=== PATIENT | female | born 2000 | race Caucasian/White ===

== ENCOUNTER 2021-07-06 18:53 | Emergency (ER) | payer MEDICAID ==
[~2021-07-06] VITALS: Ht 170.2 cm; Wt 72.6 kg
--- NOTE | 2021-07-06 19:25 | NUR ---
Pt provided urine sample, sent to lab.
--- NOTE | 2021-07-06 19:28 | NUR ---
Dr. Rojas at bedside for MSE.
[2021-07-06] MEDS ORDERED: ONDANSETRON ODT 4 MG TAB.RAPDIS SL ONE (19:45)
[2021-07-06] MEDS ORDERED: DIPHENOXYLATE HCL/ATROP SULF TABLET PO ONE (19:45)
[2021-07-06] MEDS ORDERED: DIPHENOXYLATE HCL/ATROP SULF TABLET ONE (20:06)
[2021-07-06] MEDS ORDERED: ONDANSETRON ODT 4 MG TAB.RAPDIS ONE (20:06)
[2021-07-06 20:17] LABS: *BILIRUBIN,URIN NEGATIVE (NEGATIVE); *BLOOD, URINE NEGATIVE (NEGATIVE); *CLARITY,URINE CLEAR (CLEAR); *COLOR,URINE YELLOW (YELLOW); *KETONES,URINE TRACE (NEGATIVE); *URINE HCG, QUAL NEGATIVE (NEGATIVE); *UROBILINOGEN,URINE 0.2 E.U./dl (NORMAL); LEUKOCYTE ESTERASE ,URINE NEGATIVE (NEGATIVE); NITRITE, URINE NEGATIVE (NEGATIVE); PH,URINE 5.5 (5.0-8.0); UGLUCOSE NEGATIVE (NEGATIVE)
[2021-07-06 20:26] LABS: BACTERIA,URINE FEW /HPF (NONE SEEN); MUCUS,URINE MANY /LPF (0-FEW); SQUAMOUS EPITHELIAL CELL,UR MANY /HPF (NONE SEEN); URINE AMORPHOUS URATE MODERATE /HPF
[2021-07-06] MEDS ORDERED: IV NORMAL SALINE 250 ML IV ONE (20:37)
[2021-07-06] MEDS ORDERED: IOHEXOL 300MG/ML 100 ML INFUS..BTL ONE (20:37)
[2021-07-06] MEDS ORDERED: SWABABLE VALVE TRANSFER SET EA MC ONE (20:37)
[2021-07-06 20:42] LABS: HEMATOCRIT 34.6 % (31.2-41.9); MEAN CORPUSCULAR HEMOGLOBIN 26.1 uug (24.7-32.8); PLATELET COUNT (AUTO) 610 K/uL (179-408)
[2021-07-06 20:43] LABS: CREATININE 0.8 mg/dL (0.6-1.3); POTASSIUM 3.6 mmol/L (3.5-5.1)
[2021-07-06 20:49] LABS: BILIRUBIN,DIRECT 0.1 mg/dL (0.0-0.2); BILIRUBIN,TOTAL 0.3 mg/dL (0.2-1.0); TOTAL PROTEIN, SERUM 8.6 g/dL (6.4-8.2)
--- NOTE | 2021-07-06 21:01 | NUR ---
Pt back from CT. Awake and alert.
[2021-07-06] MEDS ORDERED: DICY20TA11 PO (21:14)
[2021-07-06] MEDS ORDERED: DIPH1TAB PO (21:14)
[2021-07-06] MEDS ORDERED: ONDA4TAB5 PO (21:14)
[2021-07-06 21:28] LABS: *MONOTEST NEGATIVE (NEGATIVE)
[2021-07-06 23:30] VITALS: BP 125/63
--- NOTE | 2021-07-06 23:30 | NUR ---
Patient discharged to home in stable condition. Written and verbal after care instructions given. Patient verbalizes understanding of instructions. Stressed follow up or return to ER for worsening s/s.
== END 2021-07-06 23:31 | disposition home or self-care (01) ==
LOC: ER 18:53
DX: R10.9 Unspecified abdominal pain (principal); R11.0 Nausea; K52.9 Noninfective gastroenteritis and colitis, unspecified; K92.1 Melena; Z80.0 Family history of malignant neoplasm of digestive organs; Z20.822 Contact with and (suspected) exposure to COVID-19; R93.5 Abnormal findings on diagnostic imaging of other abdominal regions, including retroperitoneum
CPT/HCPCS: 36415; 74177; 76705; 80048; 80076; 81001; 83690; 84703; 85025; 86308; 99285; Q9967; A4663; J7050; Q0162

== ENCOUNTER 2021-08-17 19:52 | Emergency (ER) | payer MEDICAID ==
[~2021-08-17] VITALS: Ht 170.2 cm; Wt 68.5 kg
[~2021-08-17 19:52] MED LIST: DICY20TA11 PO; DIPH1TAB PO; ONDA4TAB5 PO
[2021-08-17 21:15] LABS: HEMATOCRIT 35.4 % (31.2-41.9); MEAN CORPUSCULAR HEMOGLOBIN 25.1 uug (24.7-32.8); MEAN CORPUSCULAR VOLUME 75.8 fL (75.5-95.3); PLATELET COUNT (AUTO) 854 K/uL (179-408)
[2021-08-17 21:39] LABS: MAGNESIUM 2.5 mg/dL (1.8-2.4)
[2021-08-17] MEDS ORDERED: FERR325T23 PO (21:53)
[2021-08-17] MEDS ORDERED: OXYC-128 PO (21:53)
[2021-08-17 22:18] VITALS: BP 119/68
== END 2021-08-17 22:19 | disposition home or self-care (01) ==
LOC: ER 19:54
DX: K51.90 Ulcerative colitis, unspecified, without complications (principal); D50.9 Iron deficiency anemia, unspecified
CPT/HCPCS: 36415; 83550; 83735; 85025; A4663